=== PATIENT | male | born 1985 | race African-American/Black ===

== ENCOUNTER 2018-10-28 13:58 | Emergency (ER) | payer MEDICAID ==
[~2018-10-28] VITALS: Ht 167.6 cm; Wt 79.0 kg
[2018-10-28] MEDS ORDERED: ACETAMINOPHEN WITH CODEINE 300/30MG TABLET PO ONE (18:15)
[2018-10-28 18:45] VITALS: BP 118/70
== END 2018-10-28 19:18 | disposition home or self-care (01) ==
LOC: ER 13:58
DX: B34.9 Viral infection, unspecified (principal); F12.10 Cannabis abuse, uncomplicated
CPT/HCPCS: 71045; 87070; 87430; 99284

== ENCOUNTER 2021-06-12 05:10 | Emergency (ER) | payer MEDICAID ==
[~2021-06-12] VITALS: Ht 167.6 cm; Wt 79.0 kg
[2021-06-12 05:19] VITALS: BP 118/78
[2021-06-12] MEDS ORDERED: LIDOCAINE HCL 1% 20ML VIAL (Pyxis) INJ INFIL ONE (05:45)
[2021-06-12] MEDS ORDERED: CEFTRIAXONE SODIUM 500 MG/VIAL IM ONE (05:45)
[2021-06-12] MEDS ORDERED: DOXY100C5 MT (05:50)
[2021-06-14 04:09] LABS: NEISSERIA GONORRHOEAE NAA Negative (Negative)
== END 2021-06-12 06:28 | disposition home or self-care (01) ==
LOC: ER 05:10
DX: A64 Unspecified sexually transmitted disease (principal)
CPT/HCPCS: 87491; 87591; 96372; 99283; J0696; J3490

== ENCOUNTER 2023-04-30 06:00 | Emergency (ER) | payer MEDICAID ==
[~2023-04-30] VITALS: Ht 167.6 cm; Wt 86.0 kg
[~2023-04-30 06:00] MED LIST: DOXY100C5 MT
[2023-04-30 06:32] VITALS: O2SAT 98
[2023-04-30] MEDS ORDERED: CEFTRIAXONE SODIUM 500 MG/VIAL IM ONE (09:00)
[2023-04-30] MEDS ORDERED: LIDOCAINE HCL 1% 20ML VIAL (Pyxis) INJ INFIL ONE (09:30)
[2023-04-30 09:54] LABS: CLARITY URINE CLEAR (CLEAR); COLOR URINE DARK YELLOW (YELLOW); GLUCOSE URINE NEGATIVE (NEGATIVE); KETONES URINE TRACE (NEGATIVE); LEUKOCYTE ESTERASE URINE 1+ (NEGATIVE); NITRITE URINE NEGATIVE (NEGATIVE); OCCULT BLOOD URINE NEGATIVE (NEGATIVE); PH URINE 5.5 (4.5-8.0); PROTEIN URINE TRACE (NEGATIVE)
[2023-04-30] MEDS ORDERED: DOXY100C5 MT (10:12)
[2023-04-30 10:20] LABS: BACTERIA URINE 1+; RBC URINE 0-2 /hpf (0-2); SQUAMOUS EPITHELIAL CELL URINE 1+ /lpf (RARE/1+); YEAST URINE NONE SEEN
[2023-04-30 10:24] VITALS: BP 133/64; PULSE 66; RESP 14; TEMP 98
[2023-05-02 09:07] LABS: CHLAMYDIA TRACHOMATIS NAA Negative (Negative); NEISSERIA GONORRHOEAE NAA Negative (Negative)
== END 2023-04-30 10:49 | disposition home or self-care (01) ==
LOC: ER 06:00
DX: Z20.2 Contact with and (suspected) exposure to infections with a predominantly sexual mode of transmission (principal); F12.90 Cannabis use, unspecified, uncomplicated
CPT/HCPCS: 87491; 87591; 81003; 86592; 36415; 96372; 99283; J0696; J3490; Z7610 ×2

== ENCOUNTER 2023-06-14 23:46 | Emergency (ER) | payer MEDICAID ==
[~2023-06-14] VITALS: Ht 167.6 cm; Wt 87.0 kg
[2023-06-15] VITALS: TEMP 98.1; O2SAT 99
[2023-06-15] MEDS ORDERED: KETOROLAC 30MG/ML VIAL IM ONE (02:00)
[2023-06-15] MEDS ORDERED: IBUP-2030 MT (02:02)
[2023-06-15] MEDS ORDERED: AMOX1TAB16 MT (02:02)
[2023-06-15 02:13] VITALS: BP 138/90; PULSE 82; RESP 18
[2023-06-15] MEDS ORDERED: AMOXICILLIN/POTASSIUM CLAVULANATE 875/125MG TAB PO ONE (03:15)
== END 2023-06-15 03:23 | disposition home or self-care (01) ==
LOC: ER 23:46
DX: K08.89 Other specified disorders of teeth and supporting structures (principal); F12.10 Cannabis abuse, uncomplicated; Z79.899 Other long term (current) drug therapy
CPT/HCPCS: 99283; 96372; J1885; Z7610

== ENCOUNTER 2023-07-11 01:20 | Emergency (ER) | payer MEDICAID ==
[~2023-07-11] VITALS: Ht 167.6 cm; Wt 86.1 kg
[~2023-07-11 01:20] MED LIST changes: +AMOX1TAB16 MT; +IBUP-2030 MT
[2023-07-11 01:36] VITALS: BP 134/89; PULSE 71; RESP 16; TEMP 98.6; O2SAT 98
[2023-07-11 04:02] LABS: CLARITY URINE CLEAR (CLEAR); COLOR URINE YELLOW (YELLOW); GLUCOSE URINE NEGATIVE (NEGATIVE); KETONES URINE NEGATIVE (NEGATIVE); LEUKOCYTE ESTERASE URINE TRACE (NEGATIVE); NITRITE URINE NEGATIVE (NEGATIVE); OCCULT BLOOD URINE NEGATIVE (NEGATIVE); PROTEIN URINE NEGATIVE (NEGATIVE); SPECIFIC GRAVITY URINE 1.005 (1.005-1.030); UROBILINOGEN URINE 0.2 E.U./dL (0.2-1.0)
[2023-07-11] MEDS: KETOROLAC 15MG/ML VIAL IM ONE (04:20)
[2023-07-11 04:55] LABS: BACTERIA URINE TRACE; RBC URINE NONE SEEN /hpf (0-2); SQUAMOUS EPITHELIAL CELL URINE RARE /lpf (RARE/1+)
[2023-07-11] MEDS ORDERED: METR-167 MT (05:20)
[2023-07-11] MEDS ORDERED: DOXY150T9 MT (05:22)
[2023-07-11] MEDS: CEFTRIAXONE SODIUM 500MG VIAL IM ONE (05:32)
[2023-07-13 04:09] LABS: CHLAMYDIA TRACHOMATIS NAA Negative (Negative); NEISSERIA GONORRHOEAE NAA Negative (Negative)
== END 2023-07-11 05:33 | disposition home or self-care (01) ==
LOC: ER 01:20
DX: K08.89 Other specified disorders of teeth and supporting structures (principal); F12.10 Cannabis abuse, uncomplicated
CPT/HCPCS: 99284; 87491; 87591; 81003; 96372; J0696; J1885

== ENCOUNTER 2024-02-07 02:44 | Emergency (ER) | payer MEDICAID ==
[~2024-02-07] VITALS: Ht 167.6 cm; Wt 90.7 kg
[~2024-02-07 02:44] MED LIST changes: +DOXY150T9 MT; +METR-167 MT
[2024-02-07 02:51] VITALS: O2SAT 96
[2024-02-07 03:06] VITALS: BP 126/90; PULSE 85; RESP 18; TEMP 98.8; O2SAT 99
[2024-02-07 03:36] LABS: CLARITY URINE CLEAR (CLEAR); COLOR URINE YELLOW (YELLOW); GLUCOSE URINE NEGATIVE (NEGATIVE); KETONES URINE NEGATIVE (NEGATIVE); LEUKOCYTE ESTERASE URINE TRACE (NEGATIVE); NITRITE URINE NEGATIVE (NEGATIVE); OCCULT BLOOD URINE NEGATIVE (NEGATIVE); PROTEIN URINE NEGATIVE (NEGATIVE); SPECIFIC GRAVITY URINE 1.024 (1.005-1.030)
[2024-02-07] MEDS ORDERED: DOXY100C5 MT (04:03)
[2024-02-07 04:22] LABS: BACTERIA URINE NONE SEEN; RBC URINE NONE SEEN /hpf (0-2); SQUAMOUS EPITHELIAL CELL URINE NONE SEEN /lpf (RARE/1+)
[2024-02-08 17:06] LABS: CHLAMYDIA TRACHOMATIS NAA Negative (Negative); NEISSERIA GONORRHOEAE NAA Negative (Negative)
== END 2024-02-07 04:34 | disposition home or self-care (01) ==
LOC: ER 03:09
DX: Z11.3 Encounter for screening for infections with a predominantly sexual mode of transmission (principal); F12.10 Cannabis abuse, uncomplicated; Z79.899 Other long term (current) drug therapy
CPT/HCPCS: 81003; 87491; 87591; 99283

== ENCOUNTER 2024-04-09 05:24 | Emergency (ER) | payer MEDICAID ==
[~2024-04-09] VITALS: Ht 167.6 cm; Wt 93.0 kg
[2024-04-09 05:38] VITALS: O2SAT 100
[2024-04-09] MEDS ORDERED: TOPUD PO (06:32)
[2024-04-09] MEDS: ACETAMINOPHEN 325MG TABLET PO ONE (06:40)
[2024-04-09 07:06] VITALS: BP 131/79; PULSE 81; RESP 18; TEMP 36.89184; O2SAT 100
[2024-04-10] MEDS ORDERED: AMOX1TAB16 MT (07:31)
[2024-04-10] MEDS ORDERED: IBUP-2029 MT (07:31)
== END 2024-04-09 07:07 | disposition home or self-care (01) ==
LOC: ER 05:24
DX: S63.602A Unspecified sprain of left thumb, initial encounter (principal); F12.10 Cannabis abuse, uncomplicated; Z79.899 Other long term (current) drug therapy; X58.XXXA Exposure to other specified factors, initial encounter; Y93.89 Activity, other specified; Y92.89 Other specified places as the place of occurrence of the external cause; Y99.8 Other external cause status
CPT/HCPCS: 73130; 99283

== ENCOUNTER 2024-04-10 03:39 | Emergency (ER) | payer MEDICAID ==
[~2024-04-10] VITALS: Ht 167.6 cm; Wt 93.0 kg
[~2024-04-10 03:39] MED LIST changes: +TOPUD PO
[2024-04-10 03:48] VITALS: O2SAT 98
[2024-04-10] MEDS: ACETAMINOPHEN WITH CODEINE 300/30MG TABLET PO NR (06:06)
[2024-04-10] MEDS: KETOROLAC 30MG/ML VIAL IM STA (06:07)
[2024-04-10] MEDS: ACETAMINOPHEN WITH CODEINE 300/30MG TABLET PO STA (06:10)
[2024-04-10] MEDS: LIDOCAINE HCL/PF 1% 10 MG/ML 5ML VIAL INFIL ONE (06:48)
[2024-04-10] MEDS ORDERED: IBUP-2029 MT (07:31)
[2024-04-10] MEDS ORDERED: AMOX1TAB16 MT (07:31)
[2024-04-10 07:44] VITALS: BP 127/82; PULSE 91; RESP 18; TEMP 36.66960; O2SAT 98
== END 2024-04-10 07:45 | disposition home or self-care (01) ==
LOC: ER 04:09
DX: L03.114 Cellulitis of left upper limb (principal)
CPT/HCPCS: 10060; 96372; 99283; J1885; J3490; Z7610 ×4